=== PATIENT | female | born 1955 | race African-American/Black ===

== ENCOUNTER → 2017-03-18 | Outpatient (CLI) | payer BC ==
--- NOTE | 2017-03-18 16:27 | RAD ---
DATE: 03/18/2017. EXAM: DIGITAL SCREEN BILAT W/CAD. HISTORY: Routine mammographic screening. COMPARISON: 03/17/2016. This study was interpreted with the benefit of Computerized Aided Detection (CAD). FINDINGS: The breast parenchyma shows scattered fibroglandular densities. Breast parenchyma level B.. There are no suspicious masses, microcalcifications or architectural distortion. Scattered coarse calcifications are benign. BI-RADS CATEGORY: 2 BENIGN FINDING(S). RECOMMENDED FOLLOW-UP: 12M 12 MONTH FOLLOW-UP. PQRS compliance statement: Patient information was entered into a reminder system with a target due date 03/18/2018 for the next mammogram. Mammography is a sensitive method for finding small breast cancers, but it does not detect them all and is not a substitute for careful clinical examination. A negative mammogram does not negate a clinically suspicious finding and should not result in delay in biopsying a clinically suspicious abnormality. "Our facility is accredited by the [employer] Mammography Program."
== END | disposition home or self-care (01) ==
LOC: MAMMO 14:49
PROVIDERS: ATTEND Family Medicine
DX: Z12.31 Encounter for screening mammogram for malignant neoplasm of breast (principal)
CPT/HCPCS: G0202; 77067

== ENCOUNTER → 2017-09-24 | Outpatient (CLI) | payer OTHER ==
[2017-09-24 14:36] LABS: ADD MAN DIFF? NO
[2017-09-24 14:48] LABS: BASO % 1 % (0-3); EOS # 0.2 x10^3/uL (0.0-0.7); EOS % 4 % (0-3); HEMATOCRIT 42.8 % (36.0-47.0); LYMPH # 2.5 x10^3/uL (1.0-4.8); LYMPH % 41 % (24-48); MEAN CORPUSCULAR HEMOGLOBIN 24 pg (25-35); MEAN CORPUSCULAR HGB CONC 33 g/dL (31-37); MEAN CORPUSCULAR VOLUME 72 fL (79-100); MONO # 0.4 x10^3/uL (0.0-1.1); MONO % 7 % (0-9); NEUT # 2.8 x10^3uL (1.8-7.7); NEUT % 48 % (31-73); PLATELET COUNT 231 x10^3/uL (140-400); RED BLOOD COUNT 5.96 x10^6/uL (3.50-5.40); RED CELL DISTRIBUTION WIDTH 16.2 % (11.5-14.5)
[2017-09-24 15:00] LABS: PARTIAL THROMBOPLASTIN TIME 29 SEC (24-38); PROTHROMBIN TIME PATIENT 12.2 SEC (11.7-14.0)
[2017-09-24 15:15] LABS: ALBUMIN 3.8 g/dL (3.4-5.0); ALBUMIN/GLOBULIN RATIO 0.9 (1.0-1.7); ALK PHOS 101 U/L (46-116); ALT (SGPT) 35 U/L (14-59); ANION GAP 10 (6-14); AST (SGOT) 22 U/L (15-37); BLOOD UREA NITROGEN 15 mg/dL (7-20); BUN/CREATININE RATIO 19 (6-20); CALCIUM 9.1 mg/dL (8.5-10.1); CARBON DIOXIDE 30 mmol/L (21-32); CHLORIDE 102 mmol/L (98-107); CREATININE 0.8 mg/dL (0.6-1.0); GFR 88.8; GLUCOSE 127 mg/dL (70-99); POTASSIUM 3.6 mmol/L (3.5-5.1); SODIUM 142 mmol/L (136-145); TOTAL BILIRUBIN 0.4 mg/dL (0.2-1.0); TOTAL PROTEIN 8.1 g/dL (6.4-8.2)
[2017-09-24 16:02] LABS: SEDIMENTATION RATE 20 (0-25)
[2017-09-24 19:34] LABS: OVALOCYTES OCC; PLT ESTIMATE ADEQUATE (ADEQUATE); POLYCHROMASIA SLIGHT
[2017-09-25 03:21] LABS: HEMOGLOBIN A1C 7.9 % (4.8-5.6)
== END | disposition home or self-care (01) ==
LOC: LAB 13:09
DX: Z01.818 Encounter for other preprocedural examination (principal); R94.31 Abnormal electrocardiogram [ECG] [EKG]
CPT/HCPCS: 36415; 71046; 80053; 83036; 85025; 85610; 85651; 85730; 93005

== ENCOUNTER → 2018-03-22 | Outpatient (CLI) | payer BC ==
--- NOTE | 2018-03-22 11:19 | RAD ---
DATE: 03/22/2018 EXAM: MAMMO SANGITA SCREENING BILATERAL HISTORY: Routine screening COMPARISON: 03/18/2017 This study was interpreted with the benefit of Computerized Aided Detection (CAD). Breast Density: SCATTERED The breast parenchyma shows scattered fibroglandular densities. Breast parenchyma level B. FINDINGS: 2-D and 3-D tomosynthesis imaging was performed in CC and MLO projections. No new or enlarging breast densities are seen. There are numerous benign type calcifications in both breasts. No suspicious microcalcifications have developed. Benign-appearing lymph node type densities are again noted in the axillary regions. IMPRESSION: Stable mammograms without evidence of malignancy. BI-RADS CATEGORY: 2 BENIGN FINDING(S) RECOMMENDED FOLLOW-UP: 12M 12 MONTH FOLLOW-UP PQRS compliance statement: Patient information was entered into a reminder system with a target due date for the next mammogram. Mammography is a sensitive method for finding small breast cancers, but it does not detect them all and is not a substitute for careful clinical examination. A negative mammogram does not negate a clinically suspicious finding and should not result in delay in biopsying a clinically suspicious abnormality. "Our facility is accredited by the [employer] Mammography Program."
== END | disposition home or self-care (01) ==
LOC: MAMMO 08:59
PROVIDERS: ATTEND Family Medicine
DX: Z12.31 Encounter for screening mammogram for malignant neoplasm of breast (principal)
CPT/HCPCS: 77063; 77067

== ENCOUNTER → 2019-06-20 | Outpatient (CLI) | payer BC ==
[~2019-06-20] MED LIST: BUPIVACAINE MPF 0.5% 10 ML VIAL for KCIC. IJ ONE; IOHEXOL 300 MG/ML 50 ML VIAL. INT ART ONE; LIDOCAINE 1% Multi-Dose 20 ML VIAL. ID ONE; methylPREDNISolone ACETATE 40 MG/ML VIAL. INT ART ONE
--- NOTE | 2019-06-20 15:11 | KCIC ---
MRI Lumbar Spine without contrast History: Primary osteoarthritis, progressive low back pain into both hips for 1 month Technique: Multiplanar, multi sequential noncontrast MR imaging was performed of the lumbar spine. Comparison: None Findings: There is large superior L3 Schmorl's node as associated with significant marrow edema, small superior S1 Schmorl's node. There is very mild grade 1 anterior spondylolisthesis L3-4 and L4-5. There is moderate to severe degenerative disc disease greater on the right at L5-S1, to lesser degree at L4-5 and minimally L3-4 and L2-3. Conus terminates at T12-L1. There is L5-S1 endplate edema greater on the right. There is T2 hyperintense lesion of the right kidney on the order 2.9 cm AP by 1.3 cm transverse, statistically more likely a cyst. T12-L1: There is a shallow posterior protrusion. Spinal canal and neural foramina are adequate. L1-L2: There is disc osteophyte complex and bulge. Better appreciated on the axial images, there is also extrusion extending above the intervertebral disc space in the left lateral recess on the order of 0.8 cm transverse by 0.3 cm AP by about 0.6 cm cc. There is indentation upon the ventral thecal sac at and above the intervertebral disc space level. There is xbia-av-owyklutl narrowing of the far left lateral recess, extrusion likely near the ventral undersurface exiting left L1 nerve root. There is likely at least mild inferior narrowing of the neural foramen greater proximally. Right neural foramen is adequate. L2-L3: There is minimal bulge. There is mild prominence of posterior epidural fat centrally, mild buckling of the ligamentum flavum, minimal facet degenerative change. There is mild narrowing of the far left lateral recess. Neural foramina are overall adequate. L3-L4: There is disc osteophyte complex, superimposed bulge about 4 to 5 mm maximal AP dimension. There is prominence of posterior epidural fat centrally, mild buckling of the ligamentum flavum, and minimal facet degenerative change. Combination of findings results in ojnf-fe-iigdlwzu spinal stenosis including narrowing of the far lateral recesses somewhat greater on the left, attenuation of the thecal sac more centrally from posterior epidural lipomatosis. There is mild/moderate narrowing of the left neural foramen, disc osteophyte complex contacting the undersurface exiting left L3 nerve root. Right neural foramen overall adequate. L4-L5: There is a broad posterior bulge up to about 5 to 6 mm AP. There is uuxl-oi-[id number] buckling of the ligamentum flavum and mild facet degenerative change. There is posterior annular tear. Combination of findings results in fairly severe narrowing of the far lateral recesses bilaterally somewhat greater on the left with contact of the descending L5 nerve roots, moderate to severe narrowing of the central canal. There is mild to moderate narrowing of the left neural foramen in part from disc osteophyte complex, to a somewhat lesser degree on the right. L5-S1: There is bulge/broad protrusion, greater in the right lateral recess extending into the inferior right neural foramen superimposed on disc osteophyte complex. Spinal canal is not significantly narrowed. There is mild buckling of the ligamentum flavum. There is fairly severe narrowing of the right neural foramen in part from disc osteophyte complex and protrusion, impingement of the exiting right L5 nerve root extending to the extraforaminal region by disc osteophyte complex and protrusion. There is mild narrowing of the inferior left neural foramen by disc osteophyte complex. Impression: 1. There is fairly severe narrowing of the far lateral recesses bilaterally at L4-5 with contact descending L5 nerve roots, moderate to severe narrowing of the central canal at this level. There is yjca-lu-xofkwwmc spinal stenosis L3-4 as described. There is left lateral recess stenosis as described extending above the L1-2 intervertebral disc space by extrusion. 2. There is multilevel lumbar neural foramina compromise, greatest on the right at L5-S1, lesser degree of narrowing bilaterally at L4-5 and on the left at L3-4. 3. There is minimal grade 1 anterior spondylolisthesis L3-4 and L4-5. There is multilevel lumbar facet degenerative change. 4. Nonspecific T2 hyperintense lesion of the right kidney is statistically more likely a cyst. Electronically signed by: Alexander Lloyd MD (06/20/2019 3:08 PM) [facility]
--- NOTE | 2019-06-20 17:04 | KCIC ---
PROCEDURE Therapeutic right and left hip injection using fluoroscopic guidance. HISTORY Bilateral hip pain. TECHNIQUE The procedure was explained to the patient as were potential risks, including infection, bleeding or allergic reaction. All questions were answered. Informed written and verbal consent was obtained. The right hip was prepped and draped in the usual sterile manner. Following administration of local anesthetic, a 22-gauge spinal needle was advanced into the hip joint without difficulty, with care taken to avoid the vascular structures. Stylet was removed and following negative aspiration, a mixture of 4 cc Omnipaque-300, 2 cc (80 mg) Depo-Medrol, 4 cc 0.5% Marcaine and 4 cc 1% lidocaine were injected without difficulty. Fluoroscopy demonstrates uniform and satisfactory distribution of the injection through the hip. The needle was removed. There was good hemostasis at the injection site. The left hip was prepped and draped in the usual sterile manner. Following administration of local anesthetic, a 22-gauge spinal needle was advanced into the hip joint without difficulty, with care taken to avoid the vascular structures. Stylet was removed and following negative aspiration, a mixture of 4 cc Omnipaque-300, 2 cc (80 mg) Depo-Medrol, 4 cc 0.5% Marcaine and 4 cc 1% lidocaine were injected without difficulty. Fluoroscopy demonstrates uniform and satisfactory distribution of the injection through the hip. The needle was removed. There was good hemostasis at the injection site. The patient left in stable condition without immediate complication. The patient was given postprocedural instructions, instructed to contact their physician or the emergency room if there are any complications. 2 spot images were obtained. FLUOROSCOPY TIME: 1 minute 3 seconds Electronically signed by: Giancarlo Gavin MD (06/20/2019 5:01 PM) [email or web address]
== END ==
LOC: KCIC MRI 11:45
PROVIDERS: ATTEND Orthopaedic Surgery
DX: M16.0 Bilateral primary osteoarthritis of hip (principal)
CPT/HCPCS: 20610; 72148; 77002; J1030; Q9967

== ENCOUNTER → 2019-12-21 | Outpatient (CLI) | payer BC ==
[2019-12-21 16:23] LABS: BASO % 1 % (0-3); EOS # 0.3 x10^3/uL (0.0-0.7); EOS % 5 % (0-3); HEMATOCRIT 41.3 % (36.0-47.0); HEMOGLOBIN 13.4 g/dL (12.0-15.5); LYMPH # 2.3 x10^3/uL (1.0-4.8); LYMPH % 40 % (24-48); MEAN CORPUSCULAR HEMOGLOBIN 23 pg (25-35); MEAN CORPUSCULAR HGB CONC 32 g/dL (31-37); MEAN CORPUSCULAR VOLUME 72 fL (79-100); MONO # 0.5 x10^3/uL (0.0-1.1); MONO % 9 % (0-9); NEUT # 2.6 x10^3/uL (1.8-7.7); NEUT % 45 % (31-73); PLATELET COUNT 196 x10^3/uL (140-400); RED BLOOD COUNT 5.71 x10^6/uL (3.50-5.40); RED CELL DISTRIBUTION WIDTH 15.8 % (11.5-14.5); WHITE BLOOD COUNT 5.8 x10^3/uL (4.0-11.0)
== END ==
LOC: LAB 15:35
PROVIDERS: ATTEND Internal Medicine Cardiovascular Disease
DX: R05 Cough (principal); R06.02 Shortness of breath
CPT/HCPCS: 36415; 85025; 87070

== ENCOUNTER → 2020-02-14 | Outpatient (CLI) | payer BC ==
[~2020-02-14] MED LIST changes: +AMLO2.5T5 PO; +ASCO100T4 PO; -BUPIVACAINE MPF 0.5% 10 ML VIAL for KCIC. IJ ONE; +CALC500T54 PO; +CARV25TA2 PO; +EMPA25TA PO; +FURO-69 PO; +INSU100C4 SQ; +INSU100V31 SQ; +IOHEXOL 180 MG/ML 10 ML VIAL. ONE; -IOHEXOL 300 MG/ML 50 ML VIAL. INT ART ONE; -LIDOCAINE 1% Multi-Dose 20 ML VIAL. ID ONE; +MULT400C3 PO; +OMEG1CAP27 PO; +PANT20TA2 PO; +POTA10TA6 PO; -methylPREDNISolone ACETATE 40 MG/ML VIAL. INT ART ONE; +methylPREDNISolone ACETATE 40 MG/ML VIAL. ONE; +methylPREDNISolone ACETATE 80 MG/ML VIAL. ONE
--- NOTE | 2020-02-14 14:53 | PDOC1 ---
INITIAL PAIN CONSULT DATE OF SERVICE: DOS: DATE: 02/14/20 TIME: 14:46 CHIEF COMPLAINT: Chief Complaint: Low back and right lower extremity pain HISTORY OF PRESENT ILLNESS: 64-year-old female presents history of pain low back right lower extremity for approximately 1 year no specific injury or accident that she is aware but pain is getting worse in the low back the right lower extremity posterior gluteus pos terior lateral thigh lateral anterior thigh anterior medial thigh and the knee with some numbness on the anterior and lateral thigh as well. Patient reports intermittent intensity worse with walking standing changing positions better with sitting or laying down but does awaken her from sleep frequently but not every night. Patient reports does not affect her bowel or bladder control and does affect her ability to walk at times but she not use any assistive devices to ambulate. Patient is taking Tylenol which is not been helpful decreasing the pain. She is also tried stretching and exercise but has not had no formal physical therapies or other chiropractic treatment or other treatments. Describes pain is sharp in the back also numbness in the right thigh radiating into the right lower extremity and into the knee as well. She reports no loss of motor function but significant fatigability the right lower extremity with walking for more than about 10 minutes or so. Patient reports no bowel or bladder incontinence. PAST MEDICAL HISTORY: PMH: Hypertension, diabetes, arthritis, peripheral neuropathy PREVIOUS SURGERIES: Past Surgical Hx: Hysterectomy 1989, cholecystectomy 1984 CURRENT MEDICATIONS: Current Meds: Active Scripts Medications Dose Route/Sig Max Daily Dose Days Date Category Calcium (Calcium Carbonate) 500 Mg Tab.chew 500 Mg PO DAILY 02/14/20 Reported Multi For Her 50 Plus Softgel (Multivit-Min/Folic Acid/Vit K1) 1 Each Capsule 1 Each PO DAILY 02/14/20 Reported Vitamin C (Ascorbic Acid) 100 Mg Tablet 1 Tab PO DAILY 30 02/14/20 Reported Fish Oil 1,000 Mg Softgel (Empire-3 Fatty Acids/Fish Oil) 1 Each Capsule 1 Each PO DAILY 02/14/20 Reported Carvedilol 25 Mg Tablet Unknown Dose PO BIDWMEALS 02/14/20 Reported Klor-Con 10 (Potassium Chloride) 10 Meq Tablet.er Unknown Dose PO DAILY 02/14/20 Reported Lasix (Furosemide) 20 Mg Tablet Unknown Dose PO DAILY 02/14/20 Reported Protonix (Pantoprazole Sodium) 20 Mg Tablet.dr 1 Tab PO DAILY 02/14/20 Reported Novolog (Insulin Aspart) 100 Unit/1 Ml Vial 50 Unit SQ HS 02/14/20 Reported Novolog (Insulin Aspart) 100 Unit/1 Ml Cartridge 60 Unit SQ DAILY06 02/14/20 Reported Jardiance (Empagliflozin) 25 Mg Tablet 25 Mg PO DAILY 02/14/20 Reported Amlodipine Besylate 2.5 Mg Tablet Unknown Dose PO DAILY 02/14/20 Reported ALLERGIES; Allergies: Coded Allergies: No Known Drug Allergies (Unverified , 06/20/19) FAMILY HISTORY: Family Hx: Diabetes, cancers, hypertension SOCIAL HISTORY: Social Hx: Patient is not smoke drinks alcohol 1 glass occasionally not use any illegal illicit recreational drugs is lives with her spouse has no children living in the home lives [facility] REVIEW OF SYSTEMS: ROS: Positive for those items mentioned in history of present illness, all systems are reviewed, otherwise negative, is complete full and well-documented on patient's chart PHYSICAL EXAM: VS: Blood pressure is 120/69 pulse 75 respirations 18 temperature 98.1 F height is 5 feet 2 inches weight is 210 pounds PE: PHYSICAL EXAMINATION: GENERAL: The patient is awake, alert, oriented, appropriate, very pleasant demeanor HEENT: Shows normocephalic, atraumatic. Extraocular movements are intact and symmetrical. Oral cavity: Mucous membranes moist and pink. Dentition is intact. NECK: Shows anterior throat supple without palpable lymphadenopathy noted. Swallow reflex symmetrical. CHEST: Shows normal on inspection. Breath sounds are clear bilaterally, no rales rhonchi or wheezes auscultated. HEART: Shows S1, S2 clear. No murmurs auscultated. ABDOMEN: Soft, nontender, nondistended, obese. No palpable organomegaly is noted. No rebound or guarding demonstrated. BACK: Shows spine grossly in the midline. Normal-appearing cervical lordotic curvature. There is slightly increased thoracic kyphosis, some minor flattening of the lumbar lordotic curvature. Lumbar paraspinous muscles show symmetrical on inspection, on palpation shows some moderate tenderness diffusely throughout the upper, middle and lower distribution of the paraspinous muscles bilaterally without specific trigger points, without radiation of pain. The patient has good rotational motion of the lumbar spine, both laterally as well as extension and flexion without significant difficulty. No tenderness over the spinous pro cesses, sacrum or sacroiliac regions. EXTREMITIES: Lower extremities show deep tendon reflexes 2+ in the patellar and tendo calcaneus tendons. Motor exam is 4 on a scale of 5 with right dorsiflexion, extension, quadriceps and hamstring flexion and 5/5 on the left. Peripheral pulses are 1+ posterior tibial. No peripheral edema is noted bilaterally. Lower extremities are warm and dry to touch, equal in color and appearance. Straight leg raise noted to be positive on the right about 40 degrees, left side is negative. Gaenslen's and Vimal's maneuvers are negative as well. The patient is able to stand, stand on her toes without significant loss of balance or difficulty walks with a normal-appearing gait, does not appear to favor the right or left lower extremity significantly with a short distance walking in the office today not using any assistive devices.. SKIN: Shows warm and dry, good turgor. No edema. No sores, rashes or bruising throughout. IMPRESSION: Impression: 64-year-old female with approximate 1 year history increasing pain low back right lower extremity in a radicular fashion. MRI scan lumbar spine showing fairly severe narrowing of the far lateral recesses bilaterally at L4-5 with contacting descending L5 nerve roots moderate to severe narrowing of the central canal at this level mild to moderate spinal stenosis at L3-4 with left lateral recess stenosis above the L1-2 intervertebral disc space by extrusion multilevel neuroforaminal compromise greatest on the right at L5-S1 lesser degree of narrowing bilaterally at L4-5 and on the left at L3-4 Arthritis Hypertension Diabetes Plan: Options were discussed with the patient including conservative medical management physical therapies interventional techniques that she like to pursue interventional techniques. We discussed a lumbar epidural steroid injection using description as well as anatomical models to describe the procedure. Risks were discussed including but not limited to: Bleeding, infection, possibility of epidural hematoma and subsequent neurological compromise, dural puncture, headaches, spinal cord and/or nerve damage, side effects of steroid medication, and poor results regarding pain control. Patient understands wished to proceed. Patient will return to the clinic in approximate 2 weeks for follow-up was counseled as return appointment activity level and side effects to be aware of. Procedure is lumbar epidural steroid injection under local anesthetic using sterile prep and drape at the L4-5 level using C-arm fluoroscopic guidance in both AP and lateral views medications injected is 120 mg Depo-Medrol + 10 mL preservative-free normal saline and 2 mL contrast- condition at discharge is stable patient tolerated procedure well had no complications. AR KAUR MD Feb 14, 2020 14:53
== END ==
LOC: PNCL 08:23
PROVIDERS: ATTEND Anesthesiology
DX: M48.061 Spinal stenosis, lumbar region without neurogenic claudication (principal); M19.90 Unspecified osteoarthritis, unspecified site; I10 Essential (primary) hypertension; E11.65 Type 2 diabetes mellitus with hyperglycemia; Z90.49 Acquired absence of other specified parts of digestive tract; Z90.710 Acquired absence of both cervix and uterus; Z79.899 Other long term (current) drug therapy; Z79.84 Long term (current) use of oral hypoglycemic drugs
CPT/HCPCS: 62323; J1030; J1040; Q9965

== ENCOUNTER → 2020-03-28 | Outpatient (CLI) | payer BC ==
[~2020-03-28] MED LIST changes: -IOHEXOL 180 MG/ML 10 ML VIAL. ONE; -methylPREDNISolone ACETATE 40 MG/ML VIAL. ONE; -methylPREDNISolone ACETATE 80 MG/ML VIAL. ONE
--- NOTE | 2020-03-28 15:13 | RAD ---
DATE: 03/28/2020 8:32 AM EXAM: MAMMO SANGITA SCREENING BILATERAL HISTORY: Screening COMPARISON: 12/09/2018 Bilateral CC and MLO views of the breasts were performed. Bilateral breast tomosynthesis was performed in CC and MLO projections. This study was interpreted with the benefit of Computerized Aided Detection (CAD). FINDINGS: Breast Density: SCATTERED The breast parenchyma shows scattered fibroglandular densities. Breast parenchyma level B No suspicious masses, microcalcifications or architectural distortion is present to suggest malignancy in either breast. The visualized axillae are unremarkable. IMPRESSION: No mammographic evidence of malignancy. BI-RADS CATEGORY: 1 NEGATIVE RECOMMENDED FOLLOW-UP: 12M 12 MONTH FOLLOW-UP Annual screening mammography is recommended, unless clinically indicated sooner based on symptoms or change in physical exam. PQRS compliance statement: Patient information was entered into a reminder system with a target due date for the next mammogram. Mammography is a sensitive method for finding small breast cancers, but it does not detect them all and is not a substitute for careful clinical examination. A negative mammogram does not negate a clinically suspicious finding and should not result in delay in biopsying a clinically suspicious abnormality. "Our facility is accredited by the [employer] Mammography Program."
== END ==
LOC: MAMMO 08:25
PROVIDERS: ATTEND Internal Medicine Cardiovascular Disease
DX: Z12.31 Encounter for screening mammogram for malignant neoplasm of breast (principal)
CPT/HCPCS: 77063; 77067

== ENCOUNTER → 2020-04-26 | Outpatient (CLI) | payer BC ==
[~2020-04-26] MED LIST changes: +IOHEXOL 180 MG/ML 10 ML VIAL. ONE; +methylPREDNISolone ACETATE 40 MG/ML VIAL. ONE; +methylPREDNISolone ACETATE 80 MG/ML VIAL. ONE
--- NOTE | 2020-04-26 09:33 | PDOC ---
Progress Note - Pain Clinic Date of Service: DOS: DATE: 04/26/20 TIME: 09:29 Diagnosis: Dx: Lumbar radiculopathy with lumbar degenerative disc disease History or Present Illness: HPI: 64-year-old female returns follow-up status post lumbar epidurals or injection x1. Patient reports about 50% improvement with first injection in her low back and especially the right lower extremity much improved patient reports still some pain in the low back and right leg in the posterior gluteus posterior lateral thigh lateral anterior thigh anterior medial lower leg patient reports is an 8 on scale 10 is worse over the past week 6 on average 3 its least is a 6 today patient was aching and shooting on and off in intensity worse with standing walking better with sitting or laying down does not awaken her from sleep at night. Patient reports no new motor or sensory deficits no new bowel or bladder incontinence or other complaints. Physical Exam: VS: Blood pressure 146/80 pulse 83 respirations 18 temperature 90.1 F height 5 feet 2 inches weight is 208 pounds PE: PHYSICAL EXAMINATION: GENERAL: The patient is awake, alert, oriented, appropriate, very pleasant demeanor HEENT: Shows normocephalic, atraumatic. Extraocular movements are intact and symmetrical. Oral cavity: Mucous membranes moist and pink. NECK: Shows anterior throat supple without palpable lymphadenopathy noted. Swallow reflex symmetrical. CHEST: Shows normal on inspection. Breath sounds are clear bilaterally. HEART: Shows S1, S2 clear. No murmurs auscultated. ABDOMEN: Soft, nontender, nondistended, obese. No palpable organomegaly is noted. No rebound or guarding demonstrated. BACK: Shows spine grossly in the midline. Normal-appearing cervical lordotic curvature. There is slightly increased thoracic kyphosis, some minor flattening of the lumbar lordotic curvature. Lumbar paraspinous muscles show symmetrical on inspection, on palpation shows some moderate tenderness diffusely throughout the upper, middle and lower distribution of the paraspinous muscles without specific trigger points, without radiation of pain. The patient has good rotational motion of the lumbar spine, both laterally as well as extension and flexion without significant difficulty. No tenderness over the spinous processes, sacrum or sacroiliac regions. EXTREMITIES: Lower extremities show deep tendon reflexes 2+ in the patellar and tendo calcaneus tendons. Motor exam is 4 on a scale of 5 with right dorsiflexion, extension, quadriceps and hamstring flexion and 5/5 on the left. Peripheral pulses are 1+ posterior tibial. No peripheral edema is noted bilaterally. Lower extremities are warm and dry to touch, equal in color and appearance. SKIN: Shows warm and dry, good turgor. No edema. No sores, rashes or bruising throughout. Procedure: Procedure: Options were discussed with the patient. Patient will chart reviews her current medication regimen updated current review of systems updated today as well. We will proceed with a second in the series lumbar epidural to injection today with fluoroscopic guidance risks were discussed including but not limited to: Bleeding, infection, possibility of epidural hematoma and subsequent neurological compromise, dural puncture, headaches, spinal cord and/or nerve damage, side effects of steroid medication, and poor results regarding pain control. Patient understands wished to proceed. She will return to the clinic in approximate 2 weeks for follow-up, was counseled as return appointment activity level and side effects to be aware of. Medication Injected: Med Injected: Procedure is lumbar epidural steroid injection under local anesthetic using sterile prep and drape at the L4-5 level using C-arm fluoroscopic guidance in both AP and lateral views medications injected is 120 mg Depo-Medrol + 10 mL preservative-free normal saline and 2 mL contrast- condition at discharge is stable patient tolerated procedure well had no complications. Condition at Discharge: Condition at Discharge: Condition at discharge stable, patient tolerated the procedure well and had no complications. AR KAUR MD Apr 26, 2020 09:33
== END | disposition home or self-care (01) ==
LOC: PNCL 08:42
PROVIDERS: ATTEND Anesthesiology
DX: M51.16 Intervertebral disc disorders with radiculopathy, lumbar region (principal); Z79.899 Other long term (current) drug therapy
CPT/HCPCS: 62323; J1030; J1040; Q9965

== ENCOUNTER → 2020-11-07 | Outpatient (CLI) | payer BC ==
[~2020-11-07] MED LIST changes: -IOHEXOL 180 MG/ML 10 ML VIAL. ONE; -methylPREDNISolone ACETATE 40 MG/ML VIAL. ONE; -methylPREDNISolone ACETATE 80 MG/ML VIAL. ONE
[2020-11-07 09:07] LABS: CALCIUM 9.2 mg/dL (8.5-10.1); CREATININE 0.7 mg/dL (0.6-1.0); GFR 102.3; POTASSIUM 3.6 mmol/L (3.5-5.1)
[2020-11-08 01:15] LABS: HEMOGLOBIN A1C 9.8 % (4.8-5.6)
== END ==
LOC: LAB 08:20
PROVIDERS: ATTEND Internal Medicine Cardiovascular Disease
DX: Z01.818 Encounter for other preprocedural examination (principal); I10 Essential (primary) hypertension; E11.9 Type 2 diabetes mellitus without complications; E78.2 Mixed hyperlipidemia
CPT/HCPCS: 36415; 80048; 83036; 83735

== ENCOUNTER → 2021-04-02 | Outpatient (CLI) | payer BC ==
[~2021-04-02] MED LIST changes: +POTA-112 PO; -POTA10TA6 PO
[2021-04-02 13:08] LABS: CHOLESTEROL/HDL RATIO 2.2
== END ==
LOC: LAB 12:11
PROVIDERS: ATTEND Internal Medicine Cardiovascular Disease
DX: I10 Essential (primary) hypertension (principal); E11.9 Type 2 diabetes mellitus without complications; E78.2 Mixed hyperlipidemia; E66.9 Obesity, unspecified; F41.1 Generalized anxiety disorder; R01.2 Other cardiac sounds; R60.0 Localized edema; R42 Dizziness and giddiness; I51.89 Other ill-defined heart diseases; R53.83 Other fatigue; E78.41 Elevated Lipoprotein(a)
CPT/HCPCS: 36415; 80061; 83695